=== PATIENT | male | born 1980 | race Caucasian/White ===

== ENCOUNTER 2021-04-16 15:33 | Emergency (ER) | payer MEDICARE, MEDICAID, SELFPAY ==
--- NOTE | ~2021-04-16 | XR_ITS ---
XR abdomen obstructive series DATE: 04/16/2021 18:16 INDICATION: Lower abdominal pain, vomiting TECHNIQUE: Supine and upright AP views COMPARISON: 01/07/2019 KUB FINDINGS: Circumferential radiopaque bowel sutures overlie the mid pelvic area at the expected area o f the sigmoid colon. No bowel obstruction is detected. No evidence of intraperitoneal free air. No vi sceromegaly is noted. The psoas shadows are intact. No significant abnormal calcification. The lung bases are clear. Heart size appears normal. No pleural effusion. Included skeletal structures are unremarkable. IMPRESSION: Radiopaque bowel sutures overlying mid pelvis; otherwise unremarkable examination Reviewed, dictated and finalized at [facility]. Reviewed, dictated and finalized at [facility]. IMPRESSION: Radiopaque bowel sutures overlying mid pelvis; otherwise unremarkab le examination
[2021-04-16 15:37] VITALS: BP 144/86; PULSE 82; RESP 14; TEMP 36.8; O2SAT 100
[2021-04-16 15:56] LABS: Basophils Percent Auto 0.4 % (0.2-1.2); Eosinophils Absolute Auto 0.1 K/mm3 (0-0.3); Hematocrit 41.9 % (42.0-52.0); Hemoglobin 13.6 g/dL (14.0-18.0); Immature Granulocyte Absolute 0.05 K/mm3 (0.00-0.031); Immature Granulocyte Percent A 0.7 % (0-0.5); Lymphocytes Absolute Auto 1.82 K/mm3 (0.9-3.2); Lymphocytes Percent Auto 26.9 % (18.3-44.2); Mean Corpuscular HGB Conc 32.5 g/dl (32-36); Mean Corpuscular Hemoglobin 28.1 pg (26-34); Mean Corpuscular Volume 86.6 fl (80-100); Mean Platelet Volume 9.9 fl (7.4-10.4); Monocytes Absolute Auto 0.5 K/mm3 (0.1-0.6); Neutrophils Absolute Auto 4.3 K/mm3 (1.3-6.7); Platelet Count Result 269 k/mm3 (150-375); Red Blood Count 4.84 M/mm3 (4.6-6.20); White Blood Count 6.8 K/mm3 (4.5-10.0)
[2021-04-16 16:05] LABS: Alanine Aminotransferase 23 U/L (4-50); Albumin Level 4.7 g/dL (3.5-5.1); Alkaline Phosphatase 46 U/L (38-126); Anion Gap 8 mmol/L (8-16); Aspartate Amino Transferase 23 U/L (17-59); Bilirubin,Total 0.5 mg/dL (0.2-1.3); Blood Urea Nitrogen 16 mg/dL (9-20); Calcium 9.9 mg/dL (8.4-10.2); Carbon Dioxide 32 mmol/L (22-30); Chloride 100 mmol/L (98-107); Estimated CRCL calculation 125 ml/min; Estimated Glomerular Filt Rate > 60; Glucose 93 mg/dL (65-110); Lipase 229 U/L (23-300); Potassium 4.5 mmol/L (3.4-5.0); Sodium 140 mmol/L (137-145)
[2021-04-16 16:24] LABS: Add Urine Microscopic? NO; Appearance Urine Clear (Clear); Bilirubin Urine Negative (Negative); Blood Urine Negative (Negative); Color Urine Yellow (Yellow); Glucose Urine UA Negative (Negative); Ketones Urine Negative (Negative); Leukocyte Esterase Ur Negative LEU/UL (Negative); Nitrate Urine Negative (Negative); Protein Urine Negative (Negative); Specific Grav Ur 1.017 (1.001-1.035); Urobilinogen Urine Negative mg/dL (<2.0)
--- NOTE | 2021-04-16 17:54 | ED.GENADULT ---
HPI - General Adult General Chief complaint: Abdominal Pain <GRISEL Mccollum Last Filed: 04/16/21 19:54> Stated complaint: Vomiting, Diarrhea, ABD Pain <GRISEL Mccollum Last Filed: 04/16/21 19:54> Time Seen by Provider: 04/16/21 17:53 <GRISEL Mccollum Last Filed: 04/16/21 19:54> Source: patient <GRISEL Mccollum Last Filed: 04/16/21 19:54> Mode of arrival: ambulatory <GRISEL Mccollum Last Filed: 04/16/21 19:54> Limitations: no limitations <GRISEL Mccollum Last Filed: 04/16/21 19:54> History of Present Illness HPI narrative: Patient is here for evaluation of vomiting after he ate a moldy gas station cheeseburger. He actually ate 2 but he only saw mold on the second 1. He vomited 3 times, the last being around 230 this afternoon and had 4 episodes of diarrhea. Denies any blood in his stool or emesis, and his emesis is nonbilious. But he does have a history of diverticular disease required surgery last year and he was worried. <Lisset Branch PA-C - Last Filed: 04/16/21 19:54> Onset (ago): hour(s) <GRISEL Mccollum Last Filed: 04/16/21 19:54> Associated symptoms: denies other symptoms <GRISEL Mccollum Last Filed: 04/16/21 19:54> Related Data Home medications: Home Medications Medication Instructions Recorded Confirmed montelukast [Singulair] 10 mg PO HS 04/14/19 01/07/20 metformin mg 04/16/21 pravastatin 04/16/21 <GRISEL Mccollum Last Filed: 04/16/21 19:54> Allergies/adverse reactions: Allergies Allergy/AdvReac Type Severity Reaction Status Date / Time No Known Allergies Allergy Verified 04/16/21 17:54 <Lisset Branch PA-C - Last Filed: 04/16/21 19:54> Review of Systems Review of Systems: All systems reviewed & are unremarkable except as noted in HPI and below <Lisset Branch PA-C - Last Filed: 04/16/21 19:54> [facility] Past Medical History Medical History: Medical History (Updated 04/17/21 @ 00:01 by Blair Gibson) Asthma Diverticulitis large intestine w/o perforation or abscess w/o bleeding Obesity ELFEGO (obstructive sleep apnea) <Lisset Branch PA-C - Last Filed: 04/16/21 19:54> Surgical History Surgical History: Surgical History Status post rotator cuff repair <Lisset Branch PA-C - Last Filed: 04/16/21 19:54> Family History Family History: Family History Mother Diabetes mellitus Hypertension Acute myocardial infarction Father History of blood clots Other Family history of malignant neoplasm of male breast Family history of mental disorder <Lisset Branch PA-C - Last Filed: 04/16/21 19:54> Social History Social History: Social History Smoking packs per day: 1 Smoking cigarettes per day: 20.0 Years smoked: 5 Smoking pack-years: 5.00 Smoking status: Former smoker Tobacco type: cigarettes Smoking end date: 06/16/03 Alcohol intake: former Drinks per week: 1 Substance use: never Substance use type: does not use Gender identity (if verbalized by the patient): Male Spiritual care concerns: No Agree to blood products: Yes <Lisset Branch PA-C - Last Filed: 04/16/21 19:54> Exam Const: General: no acute distress and alert <Lisset Branch PA-C - Last Filed: 04/16/21 19:54> Orientation/consciousness: patient oriented x3 <Lisset Branch PA-C - Last Filed: 04/16/21 19:54> HENMT: Head: normal to inspection <Lisset Branch PA-C - Last Filed: 04/16/21 19:54> Eyes: Conjunctivae: conjunctivae normal <Lisset Branch PA-C - Last Filed: 04/16/21 19:54> Pupils: Equal, round and reactive pupils present <Lisset Branch PA-C - Last Filed: 04/16/21 19:54> Chest: Chest palpation & inspection: normal inspection of
[2021-04-16] MEDS: ONDANSETRON HCL ODT 4 MG TABLET PO (18:17)
[2021-04-16 20:14] VITALS: BP 137/83; PULSE 80; RESP 16; O2SAT 100
== END 2021-04-16 20:15 | disposition home or self-care (01) ==
PROVIDERS: Emergency Provider General Practice
DX: A05.9 Bacterial foodborne intoxication, unspecified (principal); J45.909 Unspecified asthma, uncomplicated; G47.33 Obstructive sleep apnea (adult) (pediatric); E66.9 Obesity, unspecified; Z68.39 Body mass index [BMI] 39.0-39.9, adult
CPT/HCPCS: 36415; 74019; 80053; 81003; 83690; 85025; 99283; A9270